=== PATIENT | male | born 1950 | race Caucasian/White ===

== ENCOUNTER 2021-01-16 22:46 | Emergency (ER) | payer OTHER ==
[~2021-01-16] VITALS: Ht 170.2 cm; Wt 81.7 kg
[2021-01-16] MEDS ORDERED: ROSUVASTATIN CA20 MG PO (22:56)
[2021-01-16] MEDS ORDERED: AMITRIPTYLINE H50 M2 PO (22:57)
[2021-01-16] MEDS ORDERED: AIMOVIG AU140 MG/1 M SUBQ (22:57)
[2021-01-16] MEDS ORDERED: ZONISAMIDE 100100 M1 PO (22:57)
[2021-01-16] MEDS ORDERED: CANDESARTAN CILE4 MG PO (22:58)
[2021-01-16] MEDS ORDERED: ACETAZOLAMIDE125 MG PO (22:59)
[2021-01-16] MEDS ORDERED: ACYCLOVIR 400400 MG PO (22:59)
[2021-01-16] MEDS ORDERED: MAXALT MLT ODT10 MG PO (23:00)
[2021-01-17] MEDS ORDERED: NORCO5 PO (00:13)
[2021-01-17 00:41] VITALS: BP 131/78
== END 2021-01-17 00:45 | disposition home or self-care (01) ==
LOC: ER 22:46
DX: S42.035A Nondisplaced fracture of lateral end of left clavicle, initial encounter for closed fracture (principal); G43.909 Migraine, unspecified, not intractable, without status migrainosus; E78.00 Pure hypercholesterolemia, unspecified; Z90.89 Acquired absence of other organs; Z98.890 Other specified postprocedural states; Z79.899 Other long term (current) drug therapy; W10.9XXA Fall (on) (from) unspecified stairs and steps, initial encounter; Y93.01 Activity, walking, marching and hiking; Y92.89 Other specified places as the place of occurrence of the external cause; Y99.9 Unspecified external cause status